=== PATIENT | male | born 1995 | race Caucasian/White ===

== ENCOUNTER 2017-02-07 19:00 | Emergency (ER) | payer OTHER ==
[~2017-02-07] VITALS: Ht 182.9 cm; Wt 80.7 kg
--- NOTE | 2017-02-07 19:10 | ED.ADGEN ---
Past History Past Medical History: Other Past Surgical History: Other Adult General Chief Complaint Chief Complaint " I got bit by my dog Axil or Ass hole". ... " He is a new rescue dog.. he is reportedly had his shots.. He was acting lexie weird... and I put my hand out so he could smell it.. and he bit the shit out of it.. " HPI HPI Patient is a 21 year old male who presents with above hx and complaints of Dog bite to right hand. Patient has puncture wounds palm of right hand. Distal neurovascular intact. Has obvious edema. Has obvious crush injury. Patient is right-hand dominant. Patient up-to-date with vaccinations. Patient normally works with dogs headache work. Patient follows at [facility]. No recent travel. No specific ill contacts. Review of Systems Review of Systems Constitutional: Denies fever or chills [] Eyes: Denies change in visual acuity, redness, or eye pain [] HENT: Denies nasal congestion or sore throat [] Respiratory: Denies cough or shortness of breath [] Cardiovascular: No additional information not addressed in HPI [] GI: Denies abdominal pain, nausea, vomiting, bloody stools or diarrhea [] : Denies dysuria or hematuria [] Musculoskeletal: Denies back pain or joint pain [] complaints of the dog bite to right hand Integument: Denies rash or skin lesions [] Neurologic: Denies headache, focal weakness or sensory changes [] Endocrine: Denies polyuria or polydipsia [] Family History Family History Noncontributory Current Medications Current Medications Current Medications Medications (Trade) Dose Ordered Sig/Chaitanya Start Time Stop Time Status Last Admin Dose Admin Ceftriaxone Sodium (Rocephin Im) 1 gm 1X ONCE 02/07/17 19:45 02/07/17 19:46 DC 02/07/17 19:39 1 GM Hydrocodone Bitartrate/ Ibuprofen (Vicoprofen 7.5-200) 2 tab 1X ONCE 02/07/17 19:45 02/07/17 19:46 DC 02/07/17 19:33 2 TAB Rabies Immune Globulin (Imogam Rabies) 10.76 ml ONCE ONCE 02/07/17 20:00 02/07/17 20:01 DC 02/07/17 20:09 10.76 ML Rabies Vaccine Human Diploid Cell (Imovax Rabies 2.5 Unit / ml) 1 ml ONCE ONCE 02/07/17 19:45 02/07/17 19:46 DC 02/07/17 19:45 1 ML Allergies Allergies Allergies Coded Allergies Type Severity Reaction Last Updated Verified No Known Drug Allergies 02/07/17 No Physical Exam Physical Exam Constitutional: Well developed, well nourished, moderate distress, non-toxic appearance. [] HENT: Normocephalic, atraumatic, bilateral external ears normal, oropharynx moist, no oral exudates, nose normal. [] Eyes: PERRLA, EOMI, conjunctiva normal, no discharge. [] Neck: Normal range of motion, no tenderness, supple, no stridor. [] Cardiovascular:Heart rate regular rhythm, no murmur [] Lungs & Thorax: Bilateral breath sounds clear to auscultation [] Abdomen: Bowel sounds normal, soft, no tenderness, no masses, no pulsatile masses. [] Skin: Warm, dry, no erythema, no rash. [] Back: No tenderness, no CVA tenderness. [] Extremities: Right hand tenderness, no cyanosis, no clubbing, ROM intact, right hand edema. [] Puncture wound s right hand Neurologic: Alert and oriented X 3, normal motor function, normal sensory function, no focal deficits noted. [] Psychologic: Affect normal, judgement normal, mood normal. [] Current Patient Data Vital Signs Vital Signs Date Time Temp Pulse Resp B/P Pulse Ox O2 Delivery O2 Flow Rate FiO2 02/07/17 20:53 76 14 108/71 100 Room Air 02/07/17 19:00 97.9 EKG EKG [] Radiology/Procedures Radiology/Procedures I interpretation x-ray shows edema and soft tissue deficits. No findings of fracture. No findings of teeth. [] Course & Med Decision Making Course & Med Decision Making Pertinent Labs and Imaging studies reviewed. (See chart for details) Wounds re-cleaning care and sites injected with rabies immunoglobin and vaccination received. 1 gm Rocephin given. Patient keep wound clean and dry. Patient apply Polysporin 4 times a day. Patient take Augmentin 875 twice a day for the next 10 days. Patient may need follow-up with rabies vaccination. Do not kill dog. Dog must be confined and. Observe for signs rabies s x 10 days. . Attack was unprovoked. The dog up-to- date with vaccinations reportedly . Patient's Tylenol or ibuprofen for pain. Patient take Vicoprofen up 4 times day marked pain. Patient informed Area of wound is high risk for complicated infections. Further rabies vaccinations may be needed especially if dog shows signs of rabies. [] Final Impression Final Impression 1. Dog bite[]- crush injury Problems: Dragon Disclaimer Dragon Disclaimer This electronic medical record was generated, in whole or in part, using a voice recognition dictation system. HILARY PIRES MD Feb 07, 2017 19:10
[2017-02-07] MEDS ORDERED: HYDR-79 PO (19:28)
[2017-02-07] MEDS ORDERED: AMOX1TAB61 PO (19:28)
[2017-02-07] MEDS ORDERED: RABIES IMMUNE GLOBULIN PF 300 UNIT/2 ML VIAL. VAX IM ONE (19:30)
[2017-02-07] MEDS ORDERED: HYDROCODON/IBUPROFEN 7.5/200MG TABLET. PO ONE (19:45)
[2017-02-07] MEDS ORDERED: CEFTRIAXONE IM 1 GM VIAL. IM ONE (19:45)
[2017-02-07] MEDS ORDERED: RABIES VIRUS VACC PF 2.5 UNIT / 1 ML VIAL. VAX IM ONE (19:45)
[2017-02-07] MEDS ORDERED: RABIES IMMUNE GLOBULIN PF 150 UNIT/ML 10ML VIAL. VAX IM ONE (20:00)
[2017-02-07 20:53] VITALS: BP 108/71
--- NOTE | 2017-02-08 07:48 | RAD ---
Right hand radiographs History: Bite to anterior and at first metacarpal. Comparison: None. Findings: PA, lateral, and oblique views of the right hand. No acute fracture or dislocation is identified. No radiopaque foreign body is appreciated. There is soft tissue gas involving the volar aspect of the hand at the first interosseous space. Impression: Soft tissue injury. No acute osseous abnormality identified.
== END 2017-02-07 20:52 | disposition home or self-care (01) ==
LOC: ER 19:00
DX: S67.21XA Crushing injury of right hand, initial encounter (principal); W54.0XXA Bitten by dog, initial encounter; Y93.89 Activity, other specified; Y92.89 Other specified places as the place of occurrence of the external cause; Y99.8 Other external cause status
CPT/HCPCS: 73130; 90376; 90471; 90472; 90675; 96372; 99284; J0696